=== PATIENT | female | born 1990 | race Two or more races ===

== ENCOUNTER 2021-01-15 22:22 | Emergency (ER) | payer OTHER ==
[~2021-01-15] VITALS: Ht 165.1 cm; Wt 72.6 kg
[2021-01-15 23:39] VITALS: BP 142/92
== END 2021-01-16 00:54 | disposition home or self-care (01) ==
LOC: EDBD 22:22 → ER 22:26
DX: M62.838 Other muscle spasm (principal); R51.9 Headache, unspecified; M54.2 Cervicalgia; V49.49XA Driver injured in collision with other motor vehicles in traffic accident, initial encounter; Y93.I9 Activity, other involving external motion; Y92.488 Other paved roadways as the place of occurrence of the external cause; Y99.8 Other external cause status
CPT/HCPCS: 70450; 72125